=== PATIENT | male | born 1945 | race Caucasian/White ===

== ENCOUNTER 2018-10-10 17:52 | Inpatient (IN) | payer MEDICARE, OTHER ==
[~2018-10-10] VITALS: Ht 165.1 cm; Wt 74.0 kg
[~2018-10-10 17:52] MED LIST: ACET-1008 PO; ASPI-611 PO; CHOL10002 PO; FENO145T38 PO; FURO-149 PO; LOSA25TA96 PO; PANT-47 PO; SENN8.6T19 PO; SIMV20TA5 PO
[2018-10-10 18:44] LABS: BASOPHILS % (AUTO) 0.2 % (0-1); EOSINOPHILS % (AUTO) 0 % (0-6); HEMATOCRIT 29.9 % (42.0-52.0); HEMOGLOBIN 9.6 g/dl (14.0-17.9); LYMPHOCYTES # (AUTO) 0.8 X10'3 (1.1-4.8); LYMPHOCYTES % (AUTO) 6.1 % (21-51); MEAN CORPUSCULAR HEMOGLOBIN 29.2 PG (27.0-31.0); MEAN CORPUSCULAR HGB CONC 32.3 g/dL (33.0-36.5); MEAN CORPUSCULAR VOLUME 90.3 FL (78-98); MEAN PLATELET VOLUME 7.8 FL (7.4-10.4); MONOCYTES # (AUTO) 0.8 X10'3 (0-0.9); MONOCYTES % (AUTO) 6.1 % (2-12); NEUTROPHILS # (AUTO) 10.9 X10'3 (1.8-7.7); NEUTROPHILS % (AUTO) 87.6 % (42-75); PLATELET COUNT 412 X10'3 (140-440); RED BLOOD COUNT 3.31 X10'6 (4.70-6.10); RED CELL DISTRIBUTION WIDTH 16.4 % (11.5-14.5); WHITE BLOOD COUNT 12.5 X10'3 (4.5-11.0)
[2018-10-10 19:16] LABS: INR 1.2 INR; PARTIAL THROMBOPLASTIN TIME 31 SECONDS (22-32)
[2018-10-10 19:17] LABS: ALANINE AMINOTRANSFERASE 28 U/L (12-78); ALBUMIN 3.2 G/DL (3.4-5.0); ALBUMIN/GLOBULIN RATIO 0.7 (1.1-1.5); ALKALINE PHOSPHATASE 89 IU/L (46-116); ANION GAP 15 (8-16); ASPARTATE AMINO TRANSFERASE 43 U/L (10-37); BILIRUBIN,TOTAL 0.5 MG/DL (0.1-1.0); BLOOD UREA NITROGEN 31 MG/DL (7-18); BUN/CREATININE RATIO 16.1 (5.4-32.0); CALCIUM 8.9 MG/DL (8.5-10.1); CHLORIDE 107 MMOL/L (99-107); CREATININE 1.92 MG/DL (0.60-1.10); GLUCOSE 167 MG/DL (70-104); POTASSIUM 3.4 MMOL/L (3.5-5.1); SODIUM 145 MMOL/L (135-145); TOTAL CARBON DIOXIDE 23.5 MMOL/L (24-32); eGFR 34 ML/MIN
[2018-10-10] MEDS ORDERED: furosemide 40mg/4ml inj IV ONE (21:05)
[2018-10-10] MEDS ORDERED: diltiazem 5mg/ml 5ml inj. IV ONE (21:05)
[2018-10-10 22:00] LABS: ABG BASE EXCESS -2.6 mmol/L (-2.0-3.0); ABG HCO3 21.1 mmol/L (22.0-26.0); ABG OXYGEN SATURATION 97.5 % (95-98); ABG PCO2 (T) 32.8 mmHg (35.0-48.0); ABG PH (T) 7.427 (7.350-7.450); ABG PO2 (T) 105.6 mmHg (83-108); ALLEN'S TEST Positive; FCOHb 0.3 % (0.5-1.5); FMetHb 0.2 % (0.3-1.12); MINUTE VOLUME 18 L/min; RESPIRATORY RATE 16 b/min; RESPIRATORY RATE (OBSERVED) 34 b/min; TIDAL VOLUME 841 mL; TOTAL HEMOGLOBIN 10.4 G/dl (14.0-18.0)
[2018-10-10] MEDS ORDERED: CefTRIAXone/D5W-Rocephin 1gm 50 ML IV ONE (22:15)
[2018-10-10] MEDS ORDERED: azithromycin/NS 500mg/250ml 250 ML IV ONE (22:15)
[2018-10-10] MEDS ORDERED: ondansetron/PF 4mg/2ml inj IV PRN (22:45)
[2018-10-10] MEDS ORDERED: mag hydrox/Alum hydrox/simeth 30ml oral suspension PO PRN (22:45)
[2018-10-10] MEDS ORDERED: acetaminophen 325mg tablet PO PRN (22:45)
[2018-10-10] MEDS ORDERED: magnesium hydroxide 30ml (MOM) UD suspension PO PRN (22:45)
[2018-10-10] MEDS ORDERED: methylPREDNISolone sod succ/PF 40mg inj. IV ONE (22:55)
[2018-10-10] MEDS ORDERED: APIX2.5T PO (23:19)
[2018-10-10] MEDS ORDERED: SENN-162 PO (23:37)
[2018-10-10] MEDS ORDERED: LOSA25TA41 PO (23:37)
[2018-10-10] MEDS ORDERED: FENO145T38 PO (23:37)
[2018-10-10] MEDS ORDERED: ATOR40TA71 PO (23:38)
[2018-10-10] MEDS ORDERED: DIPH25CA6 PO (23:40)
[2018-10-10] MEDS ORDERED: FENO160T13 PO (23:40)
[2018-10-11] MEDS ORDERED: sennosides 8.6mg tablet PO SCH
--- NOTE | 2018-10-11 06:26 | NUR ---
PATIENT RECEIVED ON BED AWAKE SITTING AT THE EDGE OF THE BED,ALERT AND ORIENTED.
--- NOTE | 2018-10-11 06:34 | NUR ---
troponin elevated 0.07 and 0.08,k 3.4-was not addressed.Dr. Bean paged.Patient denies chest discomfort.We will monitor.
--- NOTE | 2018-10-11 07:16 | NUR ---
no call back from hospitalist,paged again x2.
[2018-10-11 07:44] LABS: BASOPHILS % (AUTO) 0.2 % (0-1); EOSINOPHILS % (AUTO) 0.3 % (0-6); HEMATOCRIT 27.9 % (42.0-52.0); HEMOGLOBIN 9.2 g/dl (14.0-17.9); LYMPHOCYTES # (AUTO) 0.6 X10'3 (1.1-4.8); LYMPHOCYTES % (AUTO) 5.4 % (21-51); MEAN CORPUSCULAR HEMOGLOBIN 29.8 PG (27.0-31.0); MEAN CORPUSCULAR VOLUME 90.5 FL (78-98); MEAN PLATELET VOLUME 7.9 FL (7.4-10.4); MONOCYTES # (AUTO) 0.2 X10'3 (0-0.9); MONOCYTES % (AUTO) 1.9 % (2-12); NEUTROPHILS # (AUTO) 9.7 X10'3 (1.8-7.7); NEUTROPHILS % (AUTO) 92.2 % (42-75); PLATELET COUNT 400 X10'3 (140-440); RED BLOOD COUNT 3.08 X10'6 (4.70-6.10); RED CELL DISTRIBUTION WIDTH 16.5 % (11.5-14.5); WHITE BLOOD COUNT 10.5 X10'3 (4.5-11.0)
[2018-10-11] MEDS: diphenhydrAMINE 25mg capsule PO SCH (07:47)
[2018-10-11] MEDS: aspirin 81mg tab.chew PO SCH (07:47)
[2018-10-11] MEDS: vitamin D (cholecalciferol) 1,000 unit tablet PO SCH (07:48)
[2018-10-11] MEDS: atorvastatin 20mg tablet PO SCH (07:48)
[2018-10-11] MEDS: apixaban 2.5mg tablet PO SCH ×2 (07:48→19:32)
[2018-10-11] MEDS: acetaminophen 325mg tablet PO SCH (07:48)
[2018-10-11] MEDS: losartan 25mg tablet PO SCH (07:48)
[2018-10-11] MEDS: azithromycin 250mg tablet PO SCH (07:48)
[2018-10-11 07:49] LABS: ALANINE AMINOTRANSFERASE 29 U/L (12-78); ALBUMIN 3.1 G/DL (3.4-5.0); ALBUMIN/GLOBULIN RATIO 0.6 (1.1-1.5); ALKALINE PHOSPHATASE 64 IU/L (46-116); ANION GAP 9 (8-16); ASPARTATE AMINO TRANSFERASE 42 U/L (10-37); BILIRUBIN,TOTAL 0.5 MG/DL (0.1-1.0); BLOOD UREA NITROGEN 34 MG/DL (7-18); BUN/CREATININE RATIO 16.8 (5.4-32.0); CALCIUM 8.6 MG/DL (8.5-10.1); CHLORIDE 108 MMOL/L (99-107); CREATININE 2.02 MG/DL (0.60-1.10); GLUCOSE 212 MG/DL (70-104); POTASSIUM 3.9 MMOL/L (3.5-5.1); SODIUM 144 MMOL/L (135-145); TOTAL CARBON DIOXIDE 26.7 MMOL/L (24-32); TOTAL PROTEIN 7.9 G/DL (6.4-8.2); eGFR 32 ML/MIN
[2018-10-11] MEDS: CefTRIAXone/D5W-Rocephin 1gm 50 ML IV SCH (07:51)
[2018-10-11] MEDS ORDERED: furosemide 40mg tablet PO SCH (08:00)
[2018-10-11] MEDS ORDERED: heparin, porcine 5000 units/ml vial SQ SCH (08:00)
[2018-10-11] MEDS: fenofibrate 145mg tablet PO SCH (08:30)
--- NOTE | 2018-10-11 09:12 | NUR ---
carolyn louie taken out of the room,patient sitting at the edge of the bed.
--- NOTE | 2018-10-11 09:14 | NUR ---
paged Dr. Bean paged 3rd time regarding troponin.
--- NOTE | 2018-10-11 09:19 | NUR ---
spoke to Dr. Bean reported all patient's resulted troponin,0.05,0.07,0.08,0.06-no new order. No reported chest discomfort,also made aware that patient is on 6L nc sating 94-96%,still tachy 112.
--- NOTE | 2018-10-11 10:45 | NUR ---
Report received from ED RNKolby.
--- NOTE | 2018-10-11 10:50 | NUR ---
Pt arrived to room 3009 from ED
[2018-10-11 11:00] VITALS: BP 131/75
[2018-10-11] MEDS: furosemide 40mg/4ml inj IV SCH ×2 (12:50→19:21)
[2018-10-11] MEDS: carvedilol 6.25mg tablet PO SCH ×2 (13:40→19:31)
[2018-10-11] MEDS ORDERED: pneumococcal 23-VAL P-sac vacc 25 mcg/0.5ml vial IMVAC ONE (14:00)
[2018-10-11 15:00] VITALS: BP 124/74
--- NOTE | 2018-10-11 18:25 | NUR ---
Problems reprioritized. Patient report given, questions answered & plan of care reviewed with Abi Alex RN.
--- NOTE | 2018-10-11 18:45 | NUR ---
Patient in room PCU 3009. I have received report from JOSH WING and had the opportunity to ask questions and assume patient care.
[2018-10-11 19:00] VITALS: BP 120/97
[2018-10-11] MEDS ORDERED: albuterol 2.5 MG/3 ML nebule NEB ONE (19:10)
[2018-10-11] MEDS: lactobacillus rhamnosus 10,000 MMU CELLS/CAPSULE PO SCH (19:32)
[2018-10-11 19:36] LABS: ABG BASE EXCESS -0.8 mmol/L (-2.0-3.0); ABG OXYGEN SATURATION 88.5 % (95-98); ABG PCO2 (T) 34.9 mmHg (35.0-48.0); ABG PH (T) 7.438 (7.350-7.450); ABG PO2 (T) 57.6 mmHg (83-108); ALLEN'S TEST Positive; FCOHb 0.3 % (0.5-1.5); FLOW 4 L/min; FMetHb 0.3 % (0.3-1.12); PATIENT TEMPERATURE 37.1; RESPIRATORY RATE (OBSERVED) 24 b/min; TOTAL HEMOGLOBIN 10.4 G/dl (14.0-18.0)
[2018-10-11 21:35] LABS: ABG BASE EXCESS 0.9 mmol/L (-2.0-3.0); ABG HCO3 24.3 mmol/L (22.0-26.0); ABG OXYGEN SATURATION 98.4 % (95-98); ABG PCO2 (T) 34.3 mmHg (35.0-48.0); ABG PH (T) 7.467 (7.350-7.450); ABG PO2 (T) 118.6 mmHg (83-108); ALLEN'S TEST Positive; FCOHb 0.3 % (0.5-1.5); FMetHb 0.1 % (0.3-1.12); MINUTE VOLUME 14 L/min; PATIENT TEMPERATURE 37.1; RESPIRATORY RATE 16 b/min; RESPIRATORY RATE (OBSERVED) 23 b/min; TOTAL HEMOGLOBIN 10.7 G/dl (14.0-18.0)
[2018-10-11 23:00] VITALS: BP 106/76
[2018-10-12 03:00] VITALS: BP 89/53
[2018-10-12 05:26] LABS: ALANINE AMINOTRANSFERASE 29 U/L (12-78); ALBUMIN 2.8 G/DL (3.4-5.0); ALBUMIN/GLOBULIN RATIO 0.6 (1.1-1.5); ALKALINE PHOSPHATASE 61 IU/L (46-116); ANION GAP 9 (8-16); ASPARTATE AMINO TRANSFERASE 41 U/L (10-37); BILIRUBIN,TOTAL 0.5 MG/DL (0.1-1.0); BLOOD UREA NITROGEN 44 MG/DL (7-18); BUN/CREATININE RATIO 22.7 (5.4-32.0); CALCIUM 8.5 MG/DL (8.5-10.1); CHLORIDE 105 MMOL/L (99-107); CREATININE 1.94 MG/DL (0.60-1.10); GLUCOSE 97 MG/DL (70-104); POTASSIUM 3.4 MMOL/L (3.5-5.1); SODIUM 140 MMOL/L (135-145); TOTAL CARBON DIOXIDE 26.3 MMOL/L (24-32); TOTAL PROTEIN 7.3 G/DL (6.4-8.2); eGFR 34 ML/MIN
[2018-10-12 05:50] LABS: BASOPHILS % (AUTO) 0.4 % (0-1); EOSINOPHILS # (AUTO) 0.2 X10'3 (0-0.9); EOSINOPHILS % (AUTO) 2.9 % (0-6); HEMATOCRIT 27.1 % (42.0-52.0); HEMOGLOBIN 8.9 g/dl (14.0-17.9); LYMPHOCYTES # (AUTO) 1.3 X10'3 (1.1-4.8); LYMPHOCYTES % (AUTO) 16.4 % (21-51); MEAN CORPUSCULAR HEMOGLOBIN 29.4 PG (27.0-31.0); MEAN CORPUSCULAR HGB CONC 32.8 g/dL (33.0-36.5); MEAN CORPUSCULAR VOLUME 89.6 FL (78-98); MEAN PLATELET VOLUME 7.9 FL (7.4-10.4); MONOCYTES # (AUTO) 0.5 X10'3 (0-0.9); MONOCYTES % (AUTO) 5.6 % (2-12); NEUTROPHILS # (AUTO) 6.1 X10'3 (1.8-7.7); NEUTROPHILS % (AUTO) 74.7 % (42-75); PLATELET COUNT 363 X10'3 (140-440); RED BLOOD COUNT 3.03 X10'6 (4.70-6.10); RED CELL DISTRIBUTION WIDTH 16.2 % (11.5-14.5); WHITE BLOOD COUNT 8.1 X10'3 (4.5-11.0)
--- NOTE | 2018-10-12 06:30 | NUR ---
Problems reprioritized. Patient report given, questions answered & plan of care reviewed with JERRI WING.
--- NOTE | 2018-10-12 06:32 | NUR ---
Patient in room PCU 3009. I have received report from Alexandra WING and had the opportunity to ask questions and assume patient care.
[2018-10-12 07:00] VITALS: BP 106/57
[2018-10-12] MEDS: acetaminophen 325mg tablet PO SCH (08:00)
[2018-10-12] MEDS: vitamin D (cholecalciferol) 1,000 unit tablet PO SCH (08:12)
[2018-10-12] MEDS: fenofibrate 145mg tablet PO SCH (08:12)
[2018-10-12] MEDS: CefTRIAXone/D5W-Rocephin 1gm 50 ML IV SCH (08:12)
[2018-10-12] MEDS: aspirin 81mg tab.chew PO SCH (08:12)
[2018-10-12] MEDS: furosemide 40mg/4ml inj IV SCH ×2 (08:12→20:03)
[2018-10-12] MEDS: atorvastatin 20mg tablet PO SCH (08:13)
[2018-10-12] MEDS: azithromycin 250mg tablet PO SCH (08:13)
[2018-10-12] MEDS: apixaban 2.5mg tablet PO SCH ×2 (08:13→20:03)
[2018-10-12] MEDS: lactobacillus rhamnosus 10,000 MMU CELLS/CAPSULE PO SCH ×2 (08:13→20:03)
[2018-10-12] MEDS: diphenhydrAMINE 25mg capsule PO SCH (08:13)
[2018-10-12] MEDS: carvedilol 6.25mg tablet PO SCH ×2 (08:15→20:03)
[2018-10-12] MEDS: losartan 25mg tablet PO SCH (08:15)
[2018-10-12 10:07] LABS: OCCULT BLOOD STOOL NEGATIVE (Neg)
[2018-10-12 11:00] VITALS: BP 90/66
--- NOTE | 2018-10-12 13:25 | NUR ---
Paged Dr. Bean PAGER ID: [phone] MESSAGE: Malcom WING [phone] [id number]: Garth Alexander Jr.: K+ = 3.4; no replacement ordered. Do you want to order potassium replacement protocol? Thank you
[2018-10-12 15:00] VITALS: BP 92/52
--- NOTE | 2018-10-12 17:52 | NUR ---
Paged Dr. Bean. PAGER ID: [phone] MESSAGE: Malcom WING [phone] Garth Alexander Jr.: pt ambulated 300 ft (1 lap) with RN. Sats 93% entire time on 4L NC. Pt c/o fatigue at end of walk. No distress during ambulation. Thank you.
--- NOTE | 2018-10-12 18:15 | NUR ---
Problems reprioritized. Patient report given, questions answered & plan of care reviewed with Viviana WING.
--- NOTE | 2018-10-12 18:30 | NUR ---
Patient in room PCU 3009. I have received report from DEBBIE and had the opportunity to ask questions and assume patient care.
[2018-10-12 19:00] VITALS: BP 110/50
--- NOTE | 2018-10-12 20:15 | NUR ---
PT HAS PERSISTENT DRY COUGH ALONG WITH ANXIETY. DR VALLES CALLED: TESSALON PEARRADHA AND PO ATIVAN ORDERS OBTAINED.
[2018-10-12] MEDS: benzonatate 100mg capsule PO PRN (21:09)
[2018-10-12] MEDS: LORazepam 0.5 MG tablet PO PRN (21:09)
[2018-10-12 21:30] VITALS: BP 89/55
[2018-10-13] MEDS: benzonatate 100mg capsule PO PRN ×3 (05:33→20:47)
--- NOTE | 2018-10-13 06:05 | NUR ---
Patient in room PCU 3009. I have received report from Viviana WING and had the opportunity to ask questions and assume patient care.
--- NOTE | 2018-10-13 06:14 | NUR ---
Problems reprioritized. Patient report given, questions answered & plan of care reviewed with
[2018-10-13 06:16] LABS: BASOPHILS % (AUTO) 0.5 % (0-1); EOSINOPHILS # (AUTO) 0.5 X10'3 (0-0.9); EOSINOPHILS % (AUTO) 6.7 % (0-6); HEMATOCRIT 27.4 % (42.0-52.0); HEMOGLOBIN 9.2 g/dl (14.0-17.9); LYMPHOCYTES # (AUTO) 1.3 X10'3 (1.1-4.8); LYMPHOCYTES % (AUTO) 17.2 % (21-51); MEAN CORPUSCULAR HEMOGLOBIN 29.8 PG (27.0-31.0); MEAN CORPUSCULAR HGB CONC 33.3 g/dL (33.0-36.5); MEAN CORPUSCULAR VOLUME 89.2 FL (78-98); MEAN PLATELET VOLUME 7.8 FL (7.4-10.4); MONOCYTES # (AUTO) 0.4 X10'3 (0-0.9); MONOCYTES % (AUTO) 5.7 % (2-12); NEUTROPHILS # (AUTO) 5.2 X10'3 (1.8-7.7); NEUTROPHILS % (AUTO) 69.9 % (42-75); PLATELET COUNT 351 X10'3 (140-440); RED BLOOD COUNT 3.08 X10'6 (4.70-6.10); WHITE BLOOD COUNT 7.4 X10'3 (4.5-11.0)
[2018-10-13 06:35] LABS: ALANINE AMINOTRANSFERASE 29 U/L (12-78); ALBUMIN 2.7 G/DL (3.4-5.0); ALBUMIN/GLOBULIN RATIO 0.6 (1.1-1.5); ALKALINE PHOSPHATASE 61 IU/L (46-116); ANION GAP 11 (8-16); ASPARTATE AMINO TRANSFERASE 38 U/L (10-37); BILIRUBIN,TOTAL 0.5 MG/DL (0.1-1.0); BLOOD UREA NITROGEN 56 MG/DL (7-18); BUN/CREATININE RATIO 26.3 (5.4-32.0); CALCIUM 8.8 MG/DL (8.5-10.1); CHLORIDE 102 MMOL/L (99-107); CREATININE 2.13 MG/DL (0.60-1.10); GLUCOSE 107 MG/DL (70-104); POTASSIUM 3.4 MMOL/L (3.5-5.1); SODIUM 137 MMOL/L (135-145); TOTAL CARBON DIOXIDE 23.8 MMOL/L (24-32); TOTAL PROTEIN 7.2 G/DL (6.4-8.2); eGFR 31 ML/MIN
[2018-10-13 07:00] VITALS: BP 95/55
[2018-10-13] MEDS: atorvastatin 20mg tablet PO SCH (07:39)
[2018-10-13] MEDS: vitamin D (cholecalciferol) 1,000 unit tablet PO SCH (07:39)
[2018-10-13] MEDS: lactobacillus rhamnosus 10,000 MMU CELLS/CAPSULE PO SCH ×2 (07:40→19:41)
[2018-10-13] MEDS: apixaban 2.5mg tablet PO SCH ×2 (07:40→19:42)
[2018-10-13] MEDS: furosemide 40mg/4ml inj IV SCH ×2 (07:41→20:00)
[2018-10-13] MEDS: potassium Cl 20 mEq SR tablet PO SCH (07:41)
[2018-10-13] MEDS: azithromycin 250mg tablet PO SCH (07:41)
[2018-10-13] MEDS: CefTRIAXone/D5W-Rocephin 1gm 50 ML IV SCH (07:42)
[2018-10-13] MEDS: carvedilol 6.25mg tablet PO SCH (07:43)
[2018-10-13] MEDS: diphenhydrAMINE 25mg capsule PO SCH (07:43)
[2018-10-13] MEDS: losartan 25mg tablet PO SCH (07:43)
[2018-10-13] MEDS: acetaminophen 325mg tablet PO SCH (07:50)
[2018-10-13] MEDS: aspirin 81mg tab.chew PO SCH (07:52)
[2018-10-13] MEDS: fenofibrate 145mg tablet PO SCH (07:52)
[2018-10-13 11:00] VITALS: BP 98/54
[2018-10-13] MEDS: LORazepam 0.5 MG tablet PO PRN ×2 (13:19→20:47)
[2018-10-13 15:00] VITALS: BP 100/62
--- NOTE | 2018-10-13 17:28 | NUR ---
Paged Dr. Bean PAGER ID: [phone] MESSAGE: Malcom WING [phone] Benjamin Liang: SBP 90. HR 130s. SpO2 90% 3L. Resp. 32/min. Temp 98.4 Axillary. AM Lasix held for low BP. Pt appears to need Lasix. Could we give Lasix 40 mg IV now or 20 mg IV now and decrease coreg to 3.125? Thanks
[2018-10-13 18:00] VITALS: BP 141/75
[2018-10-13] MEDS ORDERED: furosemide 40mg/4ml inj IV ONE (18:00)
--- NOTE | 2018-10-13 18:08 | NUR ---
Paged Dr. Bean PAGER ID: [phone] MESSAGE: [phone] Garth Alexander: FLORINDA: CT findings suggestive of interstitial lung disease rather than pneumonia; possible pneumonitis, edema, or hemorrhage. Do you want to order sputum sample? Thank you. - Malcom WING [phone]
--- NOTE | 2018-10-13 18:20 | NUR ---
Problems reprioritized. Patient report given, questions answered & plan of care reviewed with Nadja WING.
--- NOTE | 2018-10-13 18:30 | NUR ---
Paged Dr. Bean PAGER ID: [phone] MESSAGE: [phone] Garth Alexander: 40mg IV Lasix x1 given. Requesting order for Taveras. HR 130s and O2 82% when out of bed to bathroom. Thank you
[2018-10-13] MEDS: carVEDilol 3.125mg tablet PO SCH (19:42)
[2018-10-13 22:00] VITALS: BP 100/58
--- NOTE | 2018-10-13 23:11 | NUR ---
Daughter called very concerned about patient, says he is very sick and worried. He has had 3 siblings in the last year and that is weighing on him. She also wanted to know if Dr. Clark had been by to see him, I advised her he hadn't to my knowledge. She said she called his office today and let them know he was in the hospital and they we told upon admission that had been notified. I advised them to follow up with Dr. Bean tomorrow about Dr. Clark and that I would advise the day nurse also.
--- NOTE | 2018-10-13 23:24 | NUR ---
I was advised patient's leads were off and when I went to his room his was sitting naked on the bed with all monitors and condom cath off. He seemed confused and told me he had to pee, I got him back into bed with monitors on and a tabs was placed for his safety. I advised him to please not get up w/o call first and he did not need to go to the bathroom, his condom cath was on.
--- NOTE | 2018-10-14 | NUR ---
Patient confused and climbing out of bed again, took off condom cath. Will have sitter in room until morning to keep an eye on him
[2018-10-14 02:00] VITALS: BP 100/50
[2018-10-14 06:07] LABS: BASOPHILS % (AUTO) 0.6 % (0-1); EOSINOPHILS # (AUTO) 0.4 X10'3 (0-0.9); EOSINOPHILS % (AUTO) 5.7 % (0-6); HEMATOCRIT 26.8 % (42.0-52.0); HEMOGLOBIN 9.1 g/dl (14.0-17.9); LYMPHOCYTES # (AUTO) 1.2 X10'3 (1.1-4.8); LYMPHOCYTES % (AUTO) 16.1 % (21-51); MEAN CORPUSCULAR VOLUME 88.3 FL (78-98); MONOCYTES # (AUTO) 0.4 X10'3 (0-0.9); MONOCYTES % (AUTO) 5.9 % (2-12); NEUTROPHILS # (AUTO) 5.4 X10'3 (1.8-7.7); NEUTROPHILS % (AUTO) 71.7 % (42-75); PLATELET COUNT 376 X10'3 (140-440); RED BLOOD COUNT 3.03 X10'6 (4.70-6.10); RED CELL DISTRIBUTION WIDTH 15.9 % (11.5-14.5); WHITE BLOOD COUNT 7.5 X10'3 (4.5-11.0)
--- NOTE | 2018-10-14 06:15 | NUR ---
Patient in room PCU 3009. I have received report from Nadja WING and had the opportunity to ask questions and assume patient care.
--- NOTE | 2018-10-14 06:30 | NUR ---
Problems reprioritized. Patient report given, questions answered & plan of care reviewed with MACIEJ العراقي.
[2018-10-14 06:31] LABS: ALANINE AMINOTRANSFERASE 33 U/L (12-78); ALBUMIN 2.6 G/DL (3.4-5.0); ALBUMIN/GLOBULIN RATIO 0.6 (1.1-1.5); ALKALINE PHOSPHATASE 58 IU/L (46-116); ANION GAP 7 (8-16); ASPARTATE AMINO TRANSFERASE 40 U/L (10-37); BILIRUBIN,TOTAL 0.5 MG/DL (0.1-1.0); BLOOD UREA NITROGEN 57 MG/DL (7-18); BUN/CREATININE RATIO 28.6 (5.4-32.0); CALCIUM 8.6 MG/DL (8.5-10.1); CHLORIDE 102 MMOL/L (99-107); CREATININE 1.99 MG/DL (0.60-1.10); GLUCOSE 103 MG/DL (70-104); POTASSIUM 3.5 MMOL/L (3.5-5.1); SODIUM 138 MMOL/L (135-145); TOTAL CARBON DIOXIDE 28.9 MMOL/L (24-32); TOTAL PROTEIN 7.2 G/DL (6.4-8.2); eGFR 33 ML/MIN
[2018-10-14 07:00] VITALS: BP 99/52
[2018-10-14] MEDS: acetaminophen 325mg tablet PO SCH (08:00)
[2018-10-14] MEDS: CefTRIAXone/D5W-Rocephin 1gm 50 ML IV SCH (08:03)
[2018-10-14] MEDS: furosemide 40mg/4ml inj IV SCH ×2 (08:03→20:06)
[2018-10-14] MEDS: apixaban 2.5mg tablet PO SCH ×2 (08:03→20:04)
[2018-10-14] MEDS: atorvastatin 20mg tablet PO SCH (08:03)
[2018-10-14] MEDS: fenofibrate 145mg tablet PO SCH (08:04)
[2018-10-14] MEDS: lactobacillus rhamnosus 10,000 MMU CELLS/CAPSULE PO SCH ×2 (08:04→20:03)
[2018-10-14] MEDS: potassium Cl 20 mEq SR tablet PO SCH (08:04)
[2018-10-14] MEDS: aspirin 81mg tab.chew PO SCH (08:04)
[2018-10-14] MEDS: diphenhydrAMINE 25mg capsule PO SCH (08:04)
[2018-10-14] MEDS: vitamin D (cholecalciferol) 1,000 unit tablet PO SCH (08:05)
[2018-10-14] MEDS: azithromycin 250mg tablet PO SCH (08:05)
[2018-10-14] MEDS: carVEDilol 3.125mg tablet PO SCH ×2 (08:05→20:04)
[2018-10-14] MEDS: losartan 25mg tablet PO SCH (08:05)
[2018-10-14] MEDS ORDERED: temazepam 15mg capsule PO PRN (10:55)
[2018-10-14] MEDS ORDERED: Melatonin 3mg tablet PO PRN (10:55)
[2018-10-14 11:00] VITALS: BP 94/54
[2018-10-14] MEDS ORDERED: zolpidem 5mg tablet PO PRN (11:05)
[2018-10-14] MEDS: amiodarone 200mg tablet PO SCH (11:30)
--- NOTE | 2018-10-14 14:09 | NUR ---
Paged Dr. Bean PAGER ID: [phone] MESSAGE: Malcom WING [phone] Garth Alexander: Heart Healthy diet order says "complete." No diet ordered, only fluid restriction ordered. Can I re-activate Heart Healthy diet? Thank you.
[2018-10-14 15:00] VITALS: BP 100/52
[2018-10-14 18:00] VITALS: BP 98/54
--- NOTE | 2018-10-14 18:11 | NUR ---
Problems reprioritized. Patient report given, questions answered & plan of care reviewed with Nadja WING.
--- NOTE | 2018-10-14 18:12 | NUR ---
Patient in room PCU 3009. I have received report from MACIEJ العراقي and had the opportunity to ask questions and assume patient care. Patient resting comfortably with family at bedside, he is A&Ox3 and appropriate. Per report no confusion today, no more Ativan will be given. I will continue to monitor.
[2018-10-14] MEDS: benzonatate 100mg capsule PO PRN (20:03)
[2018-10-14 22:00] VITALS: BP 93/56
[2018-10-15 02:00] VITALS: BP 94/47
[2018-10-15 05:37] LABS: BASOPHILS # (AUTO) 0.1 X10'3 (0-0.2); BASOPHILS % (AUTO) 0.9 % (0-1); EOSINOPHILS # (AUTO) 0.5 X10'3 (0-0.9); EOSINOPHILS % (AUTO) 5.8 % (0-6); HEMATOCRIT 26.5 % (42.0-52.0); HEMOGLOBIN 8.9 g/dl (14.0-17.9); LYMPHOCYTES # (AUTO) 1.2 X10'3 (1.1-4.8); LYMPHOCYTES % (AUTO) 14.6 % (21-51); MEAN CORPUSCULAR HEMOGLOBIN 29.6 PG (27.0-31.0); MEAN CORPUSCULAR HGB CONC 33.6 g/dL (33.0-36.5); MEAN CORPUSCULAR VOLUME 88.1 FL (78-98); MEAN PLATELET VOLUME 8.1 FL (7.4-10.4); MONOCYTES # (AUTO) 0.6 X10'3 (0-0.9); MONOCYTES % (AUTO) 7.3 % (2-12); NEUTROPHILS % (AUTO) 71.4 % (42-75); PLATELET COUNT 379 X10'3 (140-440); RED BLOOD COUNT 3.01 X10'6 (4.70-6.10); RED CELL DISTRIBUTION WIDTH 16.3 % (11.5-14.5); WHITE BLOOD COUNT 8.4 X10'3 (4.5-11.0)
[2018-10-15 05:45] LABS: ALANINE AMINOTRANSFERASE 39 U/L (12-78); ALBUMIN 2.6 G/DL (3.4-5.0); ALBUMIN/GLOBULIN RATIO 0.6 (1.1-1.5); ALKALINE PHOSPHATASE 63 IU/L (46-116); ANION GAP 5 (8-16); ASPARTATE AMINO TRANSFERASE 43 U/L (10-37); BILIRUBIN,TOTAL 0.3 MG/DL (0.1-1.0); BLOOD UREA NITROGEN 60 MG/DL (7-18); CALCIUM 8.7 MG/DL (8.5-10.1); CHLORIDE 104 MMOL/L (99-107); CREATININE 2.22 MG/DL (0.60-1.10); GLUCOSE 155 MG/DL (70-104); POTASSIUM 3.9 MMOL/L (3.5-5.1); SODIUM 139 MMOL/L (135-145); TOTAL CARBON DIOXIDE 29.7 MMOL/L (24-32); TOTAL PROTEIN 7.3 G/DL (6.4-8.2); eGFR 29 ML/MIN
--- NOTE | 2018-10-15 06:32 | NUR ---
Problems reprioritized. Patient report given, questions answered & plan of care reviewed with MACIEJ Benavides.
[2018-10-15 07:00] VITALS: BP 92/54
[2018-10-15] MEDS ORDERED: furosemide 20 MG/2 ML vial IV SCH (08:00)
[2018-10-15] MEDS: vitamin D (cholecalciferol) 1,000 unit tablet PO SCH (08:17)
[2018-10-15] MEDS: atorvastatin 20mg tablet PO SCH (08:17)
[2018-10-15] MEDS: diphenhydrAMINE 25mg capsule PO SCH (08:18)
[2018-10-15] MEDS: apixaban 2.5mg tablet PO SCH (08:18)
[2018-10-15] MEDS: potassium Cl 20 mEq SR tablet PO SCH (08:18)
[2018-10-15] MEDS: carVEDilol 3.125mg tablet PO SCH (08:18)
[2018-10-15] MEDS: aspirin 81mg tab.chew PO SCH (08:18)
[2018-10-15] MEDS: azithromycin 250mg tablet PO SCH (08:18)
[2018-10-15] MEDS: acetaminophen 325mg tablet PO SCH (08:18)
[2018-10-15] MEDS: fenofibrate 145mg tablet PO SCH (08:18)
[2018-10-15] MEDS: losartan 25mg tablet PO SCH (08:18)
[2018-10-15] MEDS: amiodarone 200mg tablet PO SCH (08:18)
[2018-10-15] MEDS: lactobacillus rhamnosus 10,000 MMU CELLS/CAPSULE PO SCH (08:18)
[2018-10-15] MEDS: CefTRIAXone/D5W-Rocephin 1gm 50 ML IV SCH (08:25)
[2018-10-15 11:00] VITALS: BP 98/59
--- NOTE | 2018-10-15 12:29 | NUR ---
Initial: Pt admit with SOB, acute CHF with EF 25-35% and acute resp failure. Pt now with LifeVest, receiving Lasix, and with BiPAP with improving SOB per MD progress notes. Pt currently on a 1.5 L fluid restriction and heart healthy diet with documented 100% PO intake meeting nutrient needs. LBM 10/14. No edema or wounds. No nutrition diagnosis at this time. Will continue to follow. Recommendations: 1) Continue with heart healthy diet with fluid restriction per MD 2) Wt per rx Addendum: 10/15/18 at [address] Amended: Links added.
--- NOTE | 2018-10-15 13:09 | NUR ---
O2 Sat. off oxygen 83% with mild exertion. Amb. for 2 min. 15ft. Family/ is not in favor of a discharge today and or tomorrow.
--- NOTE | 2018-10-15 14:16 | NUR ---
Discussed oxygen use in the home form qualiying to different devices availble. Included qualifying for oxygen, compressed cylinders, liquid oxygen, and protable units available. Using oxygen safely in the home environment was also discussed.O2 Sat at rest on room air:_88__% If below 89%: Recovery O2 Sat at rest on _2__LPM:_94__%:_1__% via___NC (mask/nasal cannula, etc..) No further documentation is necessary. If O2 Sat did not drop below 89% on room air,ambulate patient on room air. O2 Sat while ambulating on room air:_79__% Recovery O2 Sat while ambulating on _2__LPM:_92__% No further documentation is necessary. If patient does not drop below 89% while ambulating, he/she does not qualify for home O2.
[2018-10-15] MEDS ORDERED: POTA20TA10 PO (14:35)
[2018-10-15] MEDS ORDERED: AMIO200T40 PO (14:35)
[2018-10-15] MEDS ORDERED: COR3.125T PO (14:36)
[2018-10-15 15:00] VITALS: BP 103/59
--- NOTE | 2018-10-15 16:07 | NUR ---
O2 Sat at rest on room air:__88_% If below 89%: Recovery O2 Sat at rest on _2__LPM:__94_ via___NC (mask/nasal cannula, etc..) No further documentation is necessary.
--- NOTE | 2018-10-15 17:07 | NUR ---
Pt. has home O2 at bedside. He has packed his belongings and arranged for a ride home. Discharge instructions include all instructions, written and oral and are well understood. 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 The prescription is called to the pharmacist. Alert and oriented to person, place time and situation and is, able to understand and sign for discharge from the hospital today. A follow up appointment was set with his Trace Evidence Technician Ivanna Clark for this SaturdayOctober 17 at 9:15 AM. Pt. has his life vest and billet assembler and understands the instructions for its use.
--- NOTE | 2018-10-15 17:10 | NUR ---
PT IN ROOM SITTING ON SIDE OF BED. VERY UPSET. I ASKED PT IF HE WAS GOING HOME. HE BEGAN YELLING THAT HE WAS WAITING FOR HIS PIV TO BE REMOVED AND THAT THE NURSE CALLED HIS MEDS INTO THE WRONG RX. HE KEPT REPEATING HIMSELF "I NEED THIS THING OUT!" REFERRING TO THE PIV. I SAID I HEAR WHAT YOUR SAYING. I WILL CHECK WITH YOUR NURSE AND FIND OUT WHATS GOING ON. I FOUND EFREN RN. SHE STATED THAT PT WAS ONLY WAITING FOR HIS SON TO GET OFF WORK FOR A RIDE. I WENT BACK TO THE ROOM. I TOLD PT THAT THE RN HAD RECALLED THE MEDS AND HE YELLED " THEN WHY THE HELL DIDN'T THE DUMB BITCH NOT COME BACK IN HERE. ?" THEN PT STOOD UP AND STARTED AGGRESSIVELY YELLING IN MY FACE THAT HE WANTED THE IV OUT. I ASKED HIM TO SIT DOWN. SO I COULD TAKE IT OUT. HE ONCE AGAIN STARTED YELLING IN MY FACE "YOU DON'T TELL ME WHAT TO DO, YOU DON'T TALK TO ME LIKE THAT!" HE GRABBED HIS THINGS, LIFE VEST AND HOME PORTABLE O2 TANK AND CONTINUING TO RANT WENT INTO THE HALLWAY. OTHER RNS GATHERED IN [address], KENRICK RN, MARISOL RN, ANDRA RN. I REMOVED PIV IN HALLWAY. PT YELLING "AND I WANT A WHEEL CHAIR!" W/C PROVIDED. PT TAKEN TO [facility] WHERE HE WAS MET BY DAUGHTER.
== END 2018-10-15 17:29 | disposition home or self-care (01) | DRG 291 ==
LOC: ER 23:14 → ED HOLD 23:42 → PCU 3S 10-11 11:01 → CMPBEDREQ 10-12 00:22
PROVIDERS: ADMIT Internal Medicine; ATTEND Internal Medicine
PROC: 5A09357 Assistance with Respiratory Ventilation, Less than 24 Consecutive Hours, Continuous Positive Airway Pressure (ICD-10-PCS; principal; 2018-10-11)
PROC: 3E0234Z Introduction of Serum, Toxoid and Vaccine into Muscle, Percutaneous Approach (ICD-10-PCS; 2018-10-11)
DX: I13.0 Hypertensive heart and chronic kidney disease with heart failure and stage 1 through stage 4 chronic kidney disease, or unspecified chronic kidney disease (principal); R65.11 Systemic inflammatory response syndrome (SIRS) of non-infectious origin with acute organ dysfunction; I50.43 Acute on chronic combined systolic (congestive) and diastolic (congestive) heart failure; J96.01 Acute respiratory failure with hypoxia; N17.9 Acute kidney failure, unspecified; J84.9 Interstitial pulmonary disease, unspecified; N18.3 Chronic kidney disease, stage 3 (moderate); I48.0 Paroxysmal atrial fibrillation; E78.00 Pure hypercholesterolemia, unspecified; D64.9 Anemia, unspecified; E78.5 Hyperlipidemia, unspecified; I25.10 Atherosclerotic heart disease of native coronary artery without angina pectoris; Z95.5 Presence of coronary angioplasty implant and graft; I25.2 Old myocardial infarction; Z79.01 Long term (current) use of anticoagulants; Z79.82 Long term (current) use of aspirin; Z79.899 Other long term (current) drug therapy; Z86.73 Personal history of transient ischemic attack (TIA), and cerebral infarction without residual deficits; Z87.891 Personal history of nicotine dependence; Z82.49 Family history of ischemic heart disease and other diseases of the circulatory system; Z83.3 Family history of diabetes mellitus; Z23 Encounter for immunization
CPT/HCPCS: 36415; 36600; 71045; 71250; 80053; 82272; 82803; 83880; 84145; 84484; 85018; 85025; 85610; 85730; 87070; 93005; 93306; 94640; 94660; 94760; 96365; 96368; 96375; 99285; G0378; J0456; J0696; J1940; J2920; J3490; Q0163

== ENCOUNTER 2020-01-28 12:45 | Outpatient (CLI) | payer OTHER ==
[~2020-01-28 12:45] MED LIST changes: +AMIO200T61 PO; +APIX2.5T PO; +ATOR40TA71 PO; +COR3.125T PO; +DIPH25CA52 PO; -FENO145T38 PO; +FENO160T13 PO; +LOSA25TA41 PO; -LOSA25TA96 PO; -PANT-47 PO; +POTA20TA10 PO; +SENN-263 PO; -SENN8.6T19 PO; -SIMV20TA5 PO
== END 2020-01-28 23:59 | disposition home or self-care (01) ==
LOC: CARD DIAG 12:45
PROVIDERS: ATTEND Orthopaedic Surgery
DX: I08.3 Combined rheumatic disorders of mitral, aortic and tricuspid valves (principal); I25.10 Atherosclerotic heart disease of native coronary artery without angina pectoris
CPT/HCPCS: 93306

== ENCOUNTER 2020-09-30 02:45 | Emergency (ER) | payer OTHER, BC ==
[~2020-09-30] VITALS: Ht 165.1 cm; Wt 77.0 kg
[2020-09-30 02:50] VITALS: BP 147/87
[2020-09-30] MEDS ORDERED: ketorolac tromethamine 15mg/ml inj. IM ONE (03:10)
[2020-09-30] MEDS ORDERED: diazepam 5mg tablet PO ONE (03:10)
[2020-09-30] MEDS ORDERED: LIDOcaine 5% patch TP SCH (04:25)
[2020-10-01] MEDS ORDERED: FURO-149 PO (03:08)
[2020-10-01] MEDS ORDERED: SOTA80TA73 PO (03:10)
== END 2020-09-30 07:33 | disposition home or self-care (01) ==
LOC: ER 02:46
DX: M54.2 Cervicalgia (principal); M25.511 Pain in right shoulder; M25.512 Pain in left shoulder; M62.838 Other muscle spasm; I25.10 Atherosclerotic heart disease of native coronary artery without angina pectoris; I11.0 Hypertensive heart disease with heart failure; I50.9 Heart failure, unspecified; E78.00 Pure hypercholesterolemia, unspecified; I25.2 Old myocardial infarction; Z98.890 Other specified postprocedural states; Z79.82 Long term (current) use of aspirin; Z79.01 Long term (current) use of anticoagulants; Z79.899 Other long term (current) drug therapy
CPT/HCPCS: 70450; 72125; 93005; 96372; 99285; J1885